=== PATIENT | male | born 1965 | race Caucasian/White ===

== ENCOUNTER 2016-09-06 19:55 | Emergency (ER) | payer OTHER ==
[2016-09-06 22:31] VITALS: BP 107/68
== END 2016-09-06 23:31 | disposition home or self-care (01) ==
LOC: ED 19:55
DX: R51 Headache (principal)
CPT/HCPCS: J3010; Q0162

== ENCOUNTER 2017-06-06 20:45 | Emergency (ER) | payer OTHER ==
[~2017-06-06] VITALS: Ht 175.3 cm; Wt 89.8 kg
[2017-06-06 20:57] VITALS: Ht 175.3 cm; Wt 89.8 kg
[2017-06-07 01:09] LABS: BASOPHIL % 0.5 % (0-2); PLATELET COUNT 246 x10^3mcL (130-400); RED CELL DISTRIBUTION WIDTH 12.2 % (11.5-14.5)
[2017-06-07 01:20] LABS: CALCIUM 7.8 mg/dL (8.5-10.1); CARBON DIOXIDE 19.7 mmol/L (21-32); CHLORIDE SERUM 103 mmol/L (98-107); GFR1 > 60 mL/min; GLUCOSE SERUM 152 mg/dL (74-106); POTASSIUM SERUM 3.7 mmol/L (3.5-5.1); SODIUM SERUM 137 mmol/L (136-145)
[2017-06-07 03:06] VITALS: BP 117/64
== END 2017-06-07 03:06 | disposition home or self-care (01) ==
LOC: ED 20:45
PROVIDERS: Emergency Medicine
DX: T17.228A Food in pharynx causing other injury, initial encounter (principal); E01.0 Iodine-deficiency related diffuse (endemic) goiter; X58.XXXA Exposure to other specified factors, initial encounter; Y93.89 Activity, other specified; Y92.89 Other specified places as the place of occurrence of the external cause; Y99.8 Other external cause status
CPT/HCPCS: J1885; J7030; Q9967

== ENCOUNTER 2017-07-04 14:26 | Emergency (ER) | payer OTHER ==
[~2017-07-04] VITALS: Ht 175.3 cm; Wt 85.7 kg
[2017-07-04 15:19] VITALS: Ht 175.3 cm; Wt 85.7 kg
[2017-07-04 17:03] LABS: PLATELET COUNT 260 x10^3mcL (130-400)
[2017-07-04 17:11] LABS: CALCIUM 8.8 mg/dL (8.5-10.1); CARBON DIOXIDE 23.4 mmol/L (21-32); CHLORIDE SERUM 102 mmol/L (98-107); CREATININE SERUM 1.1 mg/dL (0.7-1.3); GFR1 > 60 mL/min; GLUCOSE SERUM 99 mg/dL (74-106); POTASSIUM SERUM 3.8 mmol/L (3.5-5.1); SODIUM SERUM 138 mmol/L (136-145)
[2017-07-04 17:14] LABS: ALKALINE PHOSPHATASE 82 U/L (46-116); ALT/SGPT 32 U/L (16-63); AMYLASE 75 U/L (25-115); CHOLESTEROL 168 mg/dL (<200); TOTAL PROTEIN, SERUM 7.6 g/dL (6.4-8.2)
[2017-07-04 17:15] LABS: ALBUMIN 4.1 g/dL (3.4-5.0); LIPASE 243 IU/L (73-393)
[2017-07-04 17:21] LABS: UA SPECIFIC GRAVITY >=1.030 (1.005-1.035); microscopic required? YES; urine erythrocyte 1+ (NEGATIVE)
[2017-07-04 17:22] LABS: HDL CHOLESTEROL 22 mg/dL (40-60); RED CELL DISTRIBUTION WIDTH 11.4 % (11.5-14.5)
[2017-07-04 17:23] LABS: BASOPHIL % 2.4 % (0-2)
[2017-07-04 18:25] VITALS: BP 110/71
[2017-07-04 18:25] LABS: AST/SGOT 5 U/L (15-37)
== END 2017-07-04 18:25 | disposition home or self-care (01) ==
LOC: ED 14:26
PROVIDERS: Emergency Medicine
DX: I45.10 Unspecified right bundle-branch block (principal)
CPT/HCPCS: 36415; 83880; J1885; Q0092

== ENCOUNTER 2020-02-05 19:05 | Emergency (ER) | payer OTHER, BC ==
[~2020-02-05] VITALS: Ht 175.3 cm; Wt 87.1 kg
[2020-02-05 20:35] VITALS: BP 128/75
== END 2020-02-05 20:35 | disposition home or self-care (01) ==
LOC: ED 19:05
DX: S01.81XA Laceration without foreign body of other part of head, initial encounter (principal); S50.11XA Contusion of right forearm, initial encounter; Z87.19 Personal history of other diseases of the digestive system; V49.49XA Driver injured in collision with other motor vehicles in traffic accident, initial encounter; Y93.I9 Activity, other involving external motion; Y92.89 Other specified places as the place of occurrence of the external cause; Y99.8 Other external cause status
CPT/HCPCS: 90715